=== PATIENT | male | born 1960 | race Two or more races ===

== ENCOUNTER 2024-07-14 05:41 | Emergency (ER) | payer OTHER ==
[~2024-07-14] VITALS: Ht 177.8 cm; Wt 81.8 kg
[2024-07-14] MEDS: KETOROLAC TROMETHAMINE 30 MG/ML VIAL IVP ONE ×2 (06:44→09:12)
[2024-07-14] MEDS: PERTUSS(ACELL),DIPH,TET/PF 0.5 ML SYRINGE [ADULT] IM. ONE (06:45)
[2024-07-14] MEDS: VANCOMYCIN 1GM/WATER(PEG/NADA) 200 ML IV ONE (06:56)
[2024-07-14 07:45] VITALS: BP 149/95; PULSE 71; RESP 18; TEMP 98.1; O2SAT 99
[2024-07-14 07:47] LABS: BASOPHILS % (AUTO) 0.7 % (0.0-2.0); HEMOGLOBIN 10.8 g/dL (13.5-17.5); LYMPHOCYTES # (AUTO) 1.9 K/uL (1.0-4.8); MEAN CORPUSCULAR HEMOGLOBIN 28.1 pg (26.0-34.0); MEAN CORPUSCULAR HGB CONC 32.8 G/dL (31.0-37.0); MEAN CORPUSCULAR VOLUME 86 fL (80-100); MONOCYTES # (AUTO) 1.2 K/uL (0.1-1.0); NEUTROPHILS # (AUTO) 8.4 K/uL (1.8-7.7); NEUTROPHILS % (AUTO) 70.3 % (40.0-70.0); PLATELET COUNT (AUTO) 326 K/uL (150-450); RED BLOOD CELL COUNT(AUTO) 3.85 MIL/uL (4.50-5.90); RED CELL DISTRIBUTION WIDTH 14.9 % (11.5-14.5); WHITE BLOOD COUNT (AUTO) 11.9 K/uL (4.5-11.0)
[2024-07-14 07:55] LABS: ANION GAP 6 mmol/L (8-16); CALCIUM, TOTAL 8.4 mg/dL (8.8-10.5); CARBON DIOXIDE 24 mmol/L (22-29); CHLORIDE 103 mmol/L (98-107); CREATININE 0.54 mg/dL (0.60-1.30); GLOMERULAR FILTR. RATE CALC > 60 mL/min (>60); GLUCOSE,RANDOM 96 mg/dL (70-110); POTASSIUM 4.1 mmol/L (3.5-5.1); SODIUM SERUM 133 mmol/L (136-145); UREA NITROGEN, BLOOD 15 mg/dL (7-18)
[2024-07-14 08:00] LABS: CREATINE KINASE, TOTAL ONLY 134 U/L (39-308)
[2024-07-14 08:10] LABS: C-REACTIVE PROTEIN QUANT 0.11 mg/dL (0.00-0.30)
[2024-07-14 08:26] LABS: ERYTHROCYTE SEDIMENTATION RATE 21 MM/HR (0-20)
[2024-07-14] MEDS: TETANUS IMMUNE GLOBULIN 250 UNITS/SYRINGE IM. ONE (08:57)
[2024-07-14] MEDS ORDERED: ACET-2080 PO (09:15)
[2024-07-14] MEDS ORDERED: IBUP-1554 PO (09:15)
[2024-07-14] MEDS ORDERED: CEPH-558 PO (09:15)
[2024-07-14] MEDS ORDERED: DOXY-354 PO (09:15)
== END 2024-07-14 09:30 | disposition left against medical advice (07) ==
LOC: EMS 05:42 → CANBEDREQ 09:29 → EMS 09:30
DX: S61.431A Puncture wound without foreign body of right hand, initial encounter (principal); L03.119 Cellulitis of unspecified part of limb; X58.XXXA Exposure to other specified factors, initial encounter; Y93.89 Activity, other specified; Y92.89 Other specified places as the place of occurrence of the external cause; Y99.8 Other external cause status
CPT/HCPCS: 99284; 96365; 96375; 80048; 82550; 85025; 85651; 86140; 87040; 36415; 90715; 90471; 96376; 96372; J1670; J1885; J3490; 29240